=== PATIENT | male | born 1990 | race Caucasian/White ===

== ENCOUNTER 2016-07-05 22:15 | Emergency (ER) | payer SELFPAY | END 2016-07-06 02:24 | disposition home or self-care (01) | LOC: ER 22:15 | DX: G40.309 Generalized idiopathic epilepsy and epileptic syndromes, not intractable, without status epilepticus (principal); F17.210 Nicotine dependence, cigarettes, uncomplicated | CPT/HCPCS: 36415; 70450; 80053; 80307; 81003; 82947; 85025 ==